=== PATIENT | male | born 1970 | race Caucasian/White ===

== ENCOUNTER 2020-03-21 18:59 | Outpatient (REF) | payer BC, SELFPAY ==
[2020-03-21 19:51] LABS: ALT 87 U/L (16-63); AST 66 U/L (15-37); Albumin 4.4 g/dL (3.4-5.0); Alkaline Phosphatase 77 U/L (46-116); Anion Gap 14.9 mmol/L (3-11); BUN 12 mg/dL (7-18); Bilirubin, Total 0.6 mg/dL (0.2-1.0); CO2 23.1 mmol/L (21.0-32.0); CREATININE 0.88 mg/dL (0.70-1.30); Calcium 9.4 mg/dL (8.5-10.1); Calculated LDL 202 mg/dL (<100); Chloride 104 mmol/L (98-107); Cholesterol 264 mg/dL (<200); Glucose 98 mg/dL (74-106); HDL Cholesterol 43 mg/dL (40-60); Potassium 4.4 mmol/L (3.5-5.1); Sodium 142 mmol/L (136-145); Total Protein 7.6 g/dL (6.4-8.2); Triglyceride 97 mg/dL (<150)
== END 2020-03-21 19:19 ==
LOC: LBN 18:59
PROVIDERS: PCP Family Medicine; Visit Provider Family Medicine
DX: I10 Essential (primary) hypertension (principal); Z13.220 Encounter for screening for lipoid disorders
CPT/HCPCS: 80053; 80061

== ENCOUNTER 2022-04-09 02:16 | Outpatient (CLI) | payer BC, SELFPAY ==
[2022-04-09 13:56] LABS: ALT 36 U/L (16-63); AST 24 U/L (15-37); Alkaline Phosphatase 94 U/L (46-116); Anion Gap 8.2 mmol/L (3-11); BUN 14 mg/dL (7-18); Bilirubin, Total 1.1 mg/dL (0.2-1.0); CO2 27.8 mmol/L (21.0-32.0); CREATININE 1.1 mg/dL (0.70-1.30); Calcium 8.8 mg/dL (8.5-10.1); Calculated LDL 66 mg/dL (<100); Chloride 102 mmol/L (98-107); Cholesterol 131 mg/dL (<200); Glucose 125 mg/dL (74-106); HDL Cholesterol 43 mg/dL (40-60); Potassium 3.9 mmol/L (3.5-5.1); Sodium 138 mmol/L (136-145); Total Protein 7.9 g/dL (6.4-8.2); Triglyceride 110 mg/dL (<150)
[2022-04-12 10:10] LABS: Hepatitis C Ab w Rflx HCV PCR Negative (Negative)
== END 2022-04-09 02:17 | disposition home or self-care (01) ==
LOC: LBO 02:16
PROVIDERS: Nurse Practitioner Adult Health; PCP Family Medicine; Visit Provider Family Medicine
DX: E78.5 Hyperlipidemia, unspecified (principal); R73.01 Impaired fasting glucose; Z11.3 Encounter for screening for infections with a predominantly sexual mode of transmission; Z11.59 Encounter for screening for other viral diseases
CPT/HCPCS: 36415; 80053; 80061; 86803

== ENCOUNTER 2025-08-23 03:02 | Outpatient (CLI) | payer BC, SELFPAY ==
[2025-08-23 09:31] LABS: Cholesterol 243 mg/dL (<200); HDL Cholesterol 54 mg/dL (>or=40)
== END 2025-08-23 03:03 | disposition home or self-care (01) ==
LOC: LBO 03:02
PROVIDERS: PCP Family Medicine; Referring Provider Family Medicine; Visit Provider Family Medicine
DX: E78.5 Hyperlipidemia, unspecified (principal)
CPT/HCPCS: 36415; 80061